=== PATIENT | male | born 1975 | race Caucasian/White ===

== ENCOUNTER 2019-07-21 08:20 | Inpatient (IN) | payer OTHER ==
[~2019-07-21] VITALS: Ht 172.7 cm; Wt 120.0 kg
[2019-07-21 08:56] LABS: BASOPHILS % (AUTO) 0.5 % (0.0-2.0); EOSINOPHILS % (AUTO) 2.8 % (1.0-6.0); HEMATOCRIT 42.8 % (41-53); HEMOGLOBIN 14.5 g/dL (13.5-17.5); LYMPHOCYTES # (AUTO) 1.7 K/uL (1.0-4.8); LYMPHOCYTES % (AUTO) 25.8 % (22.0-44.0); MEAN CORPUSCULAR HEMOGLOBIN 31.2 pg (26.0-34.0); MEAN CORPUSCULAR HGB CONC 33.8 G/dL (31.0-37.0); MEAN CORPUSCULAR VOLUME 93 fL (80-100); MONOCYTES # (AUTO) 0.7 K/uL (0.1-1.0); MONOCYTES % (AUTO) 11.2 % (2.0-9.0); NEUTROPHILS # (AUTO) 3.9 K/uL (1.8-7.7); NEUTROPHILS % (AUTO) 59.7 % (40.0-70.0); PLATELET COUNT (AUTO) 223 K/uL (150-450); RED BLOOD CELL COUNT(AUTO) 4.63 MIL/uL (4.50-5.90); RED CELL DISTRIBUTION WIDTH 13.7 % (11.5-14.5)
[2019-07-21 09:06] LABS: ANION GAP 6 mmol/L (8-16); CALCIUM, TOTAL 8.6 mg/dL (8.8-10.5); CARBON DIOXIDE 32 mmol/L (22-29); CHLORIDE 106 mmol/L (98-107); CREATININE 0.63 mg/dL (0.60-1.30); GLOMERULAR FILTR. RATE CALC > 60 mL/min (>60); GLUCOSE,RANDOM 96 mg/dL (70-110); POTASSIUM 4.2 mmol/L (3.5-5.1); SODIUM SERUM 144 mmol/L (136-145); UREA NITROGEN, BLOOD 8 mg/dL (7-18)
[2019-07-21 09:12] LABS: ALANINE AMINOTRANSFERASE 37 U/L (12-78); ALBUMIN 3.1 g/dL (3.4-5.0); ALKALINE PHOSPHATASE 98 U/L (46-116); ASPARTATE AMINOTRANSFERASE 20 U/L (15-37); BILIRUBIN,TOTAL 0.2 mg/dL (0.1-1.0); TOTAL PROTEIN, SERUM 6.9 g/dL (6.4-8.2)
[2019-07-21] MEDS ORDERED: ONDANSETRON HCL 4 MG/2 ML VIAL IVP PRN (09:45)
[2019-07-21] MEDS ORDERED: 0.9% SODIUM CHLORIDE 10 ML SYRINGE IVP PRN (09:45)
[2019-07-21] MEDS ORDERED: ACETAMINOPHEN 325 MG TABLET PO PRN (09:45)
[2019-07-21 10:00] LABS: AMPHET/METH SCREEN,URINE NEGATIVE (NEGATIVE); BARBITURATE SCREEN, URINE NEGATIVE (NEGATIVE); BENZODIAZEPINES SCREEN,URINE NEGATIVE (NEGATIVE); CANNABINOID SCREEN,URINE NEGATIVE (NEGATIVE); COCAINE SCREEN,URINE NEGATIVE (NEGATIVE); METHADONE SCREEN, URINE NEGATIVE (NEGATIVE); OPIATE SCREEN,URINE NEGATIVE (NEGATIVE)
[2019-07-21 10:05] LABS: PHENCYCLIDINE SCREEN,URINE NEGATIVE (NEGATIVE)
[2019-07-21 10:43] VITALS: BP 124/74
[2019-07-21] MEDS ORDERED: INFLUENZA VIRUS VACCINE QVS 2019-20 (3YR+)/PF 60 MCG/0.5 ML SYRINGE IM ONE (11:15)
[2019-07-21] MEDS ORDERED: PNEUMOCOCCAL VACCINE POLYVALENT 0.5 ML VIAL [PPSV23] IM ONE (11:15)
[2019-07-21] MEDS ORDERED: MAGNESIUM HYDROXIDE SUSPENSION 30 ML UDCUP PO PRN (12:00)
[2019-07-21 15:30] VITALS: BP 115/70
[2019-07-21 19:30] VITALS: BP 112/67
[2019-07-21] MEDS: ACETAMINOPHEN 325 MG TABLET PO PRN (20:19)
[2019-07-21] MEDS: DOCUSATE SODIUM 100 MG CAPSULE PO SCH (20:19)
[2019-07-22 04:00] VITALS: BP 107/64
[2019-07-22 07:19] LABS: BASOPHILS % (AUTO) 0.4 % (0.0-2.0); EOSINOPHILS % (AUTO) 2.7 % (1.0-6.0); HEMATOCRIT 41.8 % (41-53); HEMOGLOBIN 14.5 g/dL (13.5-17.5); LYMPHOCYTES % (AUTO) 28.6 % (22.0-44.0); MEAN CORPUSCULAR HEMOGLOBIN 31.8 pg (26.0-34.0); MEAN CORPUSCULAR HGB CONC 34.6 G/dL (31.0-37.0); MEAN CORPUSCULAR VOLUME 92 fL (80-100); MONOCYTES # (AUTO) 0.7 K/uL (0.1-1.0); MONOCYTES % (AUTO) 10.3 % (2.0-9.0); NEUTROPHILS # (AUTO) 4.1 K/uL (1.8-7.7); PLATELET COUNT (AUTO) 242 K/uL (150-450); RED BLOOD CELL COUNT(AUTO) 4.55 MIL/uL (4.50-5.90); RED CELL DISTRIBUTION WIDTH 13.5 % (11.5-14.5)
[2019-07-22 07:32] LABS: ALANINE AMINOTRANSFERASE 33 U/L (12-78); ALKALINE PHOSPHATASE 91 U/L (46-116); ANION GAP 5 mmol/L (8-16); ASPARTATE AMINOTRANSFERASE 16 U/L (15-37); BILIRUBIN,TOTAL 0.4 mg/dL (0.1-1.0); CALCIUM, TOTAL 8.7 mg/dL (8.8-10.5); CARBON DIOXIDE 33 mmol/L (22-29); CHLORIDE 104 mmol/L (98-107); CREATININE 0.76 mg/dL (0.60-1.30); GLOMERULAR FILTR. RATE CALC > 60 mL/min (>60); GLUCOSE,RANDOM 86 mg/dL (70-110); POTASSIUM 4.1 mmol/L (3.5-5.1); SODIUM SERUM 142 mmol/L (136-145); UREA NITROGEN, BLOOD 12 mg/dL (7-18)
[2019-07-22 07:34] VITALS: BP 92/69
[2019-07-22] MEDS: FAMOTIDINE 20 MG TABLET PO SCH (08:40)
[2019-07-22] MEDS: DOCUSATE SODIUM 100 MG CAPSULE PO SCH ×2 (08:41→19:47)
[2019-07-22] MEDS: ACETAMINOPHEN 325 MG TABLET PO PRN (08:41)
[2019-07-22 15:45] VITALS: BP 111/74
[2019-07-22] MEDS: HALOPERIDOL 5 MG TABLET PO SCH (19:46)
[2019-07-22 20:09] VITALS: BP 107/64
[2019-07-23 04:40] VITALS: BP 97/67
[2019-07-23 08:05] VITALS: BP 98/68
[2019-07-23] MEDS: FAMOTIDINE 20 MG TABLET PO SCH (08:15)
[2019-07-23] MEDS: DOCUSATE SODIUM 100 MG CAPSULE PO SCH ×2 (08:15→20:44)
[2019-07-23 15:45] VITALS: BP 101/62
[2019-07-23] MEDS: HALOPERIDOL 5 MG TABLET PO SCH (20:45)
[2019-07-23 20:46] VITALS: BP 96/52
[2019-07-24 05:11] VITALS: BP 103/66
[2019-07-24] MEDS: DOCUSATE SODIUM 100 MG CAPSULE PO SCH ×2 (08:00→19:58)
[2019-07-24] MEDS: FAMOTIDINE 20 MG TABLET PO SCH (08:00)
[2019-07-24 08:09] VITALS: BP 113/67
[2019-07-24 16:07] VITALS: BP 116/69
[2019-07-24 17:10] LABS: GLUCOMETER DEV NAME(LOC) 4E.2; GLUCOSE,POINT OF CARE 102 MG/DL (70-110)
[2019-07-24] MEDS: HALOPERIDOL 5 MG TABLET PO SCH (19:58)
[2019-07-24 20:34] VITALS: BP 115/67
[2019-07-25 05:21] VITALS: BP 119/69
[2019-07-25 08:16] VITALS: BP 107/73
[2019-07-25] MEDS: FAMOTIDINE 20 MG TABLET PO SCH (08:32)
[2019-07-25] MEDS: DOCUSATE SODIUM 100 MG CAPSULE PO SCH ×2 (08:32→20:25)
[2019-07-25 15:40] VITALS: BP 114/68
[2019-07-25] MEDS: HALOPERIDOL 5 MG TABLET PO SCH (20:27)
[2019-07-25 20:30] VITALS: BP 122/66
[2019-07-26 05:23] VITALS: BP 103/67
[2019-07-26 08:48] VITALS: BP 114/70
[2019-07-26] MEDS: FAMOTIDINE 20 MG TABLET PO SCH (09:06)
[2019-07-26] MEDS: DOCUSATE SODIUM 100 MG CAPSULE PO SCH ×2 (09:06→20:39)
[2019-07-26 15:43] VITALS: BP 108/71
[2019-07-26] MEDS: HALOPERIDOL 5 MG TABLET PO SCH (20:39)
[2019-07-27 04:45] VITALS: BP 107/68
[2019-07-27 08:34] VITALS: BP 98/74
[2019-07-27] MEDS: FAMOTIDINE 20 MG TABLET PO SCH (08:34)
[2019-07-27] MEDS: DOCUSATE SODIUM 100 MG CAPSULE PO SCH (08:35)
[2019-07-27] MEDS ORDERED: HALO10 PO (14:17)
== END 2019-07-27 18:10 | DRG 885 ==
LOC: EMS 08:23 → 6S 09:39
PROVIDERS: ADMIT Internal Medicine; ATTEND Internal Medicine
DX: F20.0 Paranoid schizophrenia (principal); E11.9 Type 2 diabetes mellitus without complications; Z59.0 Homelessness
CPT/HCPCS: G0480